=== PATIENT | male | born 1935 | race Caucasian/White ===

== ENCOUNTER → 2016-12-03 | Outpatient (REF) ==
[2016-12-03 12:51] LABS: ANISOCYTOSIS SLIGHT; BAND NEUTROPHILS % 6 % (0-6); EOSINOPHILS % 3 % (0-4); LYMPHOCYTES # 1.6 #; MEAN CORPUSCULAR HEMOGLOBIN 34.9 PG (26.0-34.0); MEAN CORPUSCULAR HGB CONC 35.2 g/dL (31.0-37.0); MEAN CORPUSCULAR VOLUME 99 FL (80-100); MEAN PLATELET VOLUME 10.5 FL (6.0-9.5); MONOCYTES # 0.2 #; MONOCYTES % 7 % (3-11); PLATELET COUNT 119 10^3uL (150-450); POIKILOCYTOSIS SLIGHT; RBC MORPH SEE REFERENCE (NORMAL); SEGMENTED NEUTROPHILS % 39 % (51-67); TOTAL CELLS COUNTED 100; WHITE BLOOD COUNT 3.63 10^3uL (4.0-11.0)
== END ==
LOC: CLAB.BLUES 11:30
PROVIDERS: ATTEND Family Medicine
DX: D61.818 Other pancytopenia (principal)
CPT/HCPCS: 85007; 85027